=== PATIENT | female | born 1945 | race Caucasian/White ===

== ENCOUNTER 2017-06-24 12:23 | Emergency (ER) | payer OTHER ==
[2017-06-24 12:34] VITALS: TEMP 97.9
--- NOTE | 2017-06-24 13:01 | EDPHY ---
H & P Time Seen by Provider: 06/24/17 12:44 HPI/ROS: CHIEF COMPLAINT: Left hip injury HISTORY OF PRESENT ILLNESS: This 72-year-old woman has a history of having a right hip replaced in February of last year at [facility] for arthritis. Today she [place] when a dog came up behind her and rapid self around her legs causing her to fall landing on her left hip. No head injury or loss of consciousness and no neck or back pain. Hip injury is moderate and does not radiate but is worse with weight-bearing. No weakness or numbness in the foot. REVIEW OF SYSTEMS: Eye: no change in vision ENT: no sore throat Cardiac: no chest pain or syncope Pulmonary: no cough or SOB Abdomen: no vomiting, diarrhea, abdominal pain Musculoskeletal: No back or neck pain Skin: Left elbow abrasion and left hip contusion Neuro: no headache Constitutional: no fever : no urinary symptoms A comprehensive 10 point review of systems is otherwise negative aside from elements mentioned in the history of present illness. PAST MEDICAL HISTORY: Includes right hip replacement, hypercholesterolemia, coronary stenting in December. Arthritis. Social history: [facility] patient General Appearance: Alert and conversant, cooperative. Eyes: No scleral icterus. ENT, Mouth: Normal mucous membranes. Respiratory: Normal respiratory effort, breath sounds equal, lungs are clear to auscultation. Cardiovascular: Regular rate and rhythm. Gastrointestinal: Abdomen is soft and non tender. Neurological: Alert and oriented x3. Normally conversant. Face symmetric, normal movement and sensation in all extremities. Skin: Abrasion to the left elbow. 3 cm contusion to left hip around the area of the greater trochanter. Musculoskeletal: No midline spinal tenderness. Left iliac crest tenderness to pelvic compression but no instability. Left hip does not hurt on axial loading or rotation. Normal movement of the left knee and lower leg and ankle and foot. Normal range of motion of the left elbow and no other extremity tenderness. Psychiatric: Not agitated. Emergency Department course/MDM: Left hip x-ray. Do not think she has a left elbow fracture. Cervical spine cleared clinically. Tetanus up-to-date. 1330: Reviewed x-ray results with the patient, she can't really walk on it. Plan for CT to confirm no fracture and if negative crutches and outpatient follow-up with [facility]. 1425: Left hip CT negative for fracture. 1436: Results discussed with the patient, clinical follow-up, symptomatic treatment. Smoking Status: Never smoked Constitutional: Initial Vital Signs Temperature (C) 36.6 C 06/24/17 12:31 Heart Rate 95 06/24/17 12:31 Respiratory Rate 20 06/24/17 12:31 Blood Pressure 188/95 H 06/24/17 12:31 O2 Sat (%) 98 06/24/17 12:31 O2 Delivery Mode Room Air Allergies/Adverse Reactions: ibuprofen Allergy (Verified 06/24/17 12:31) Home Medications: Medication Instructions Recorded Brilinta 06/24/17 Lipitor 06/24/17 Medical Decision Making - Diagnostics Imaging Results: Imaging Impressions Hip X-Ray 06/24/17 12:43 Impression: Left hip negative for fracture. Extremity CT 06/24/17 13:29 Impression: Negative for fracture with degenerative changes noted. Results called and discussed with SHIREEN RASMUSSEN M.D. on 06/24/2017 at 14:25 Left hip x-ray interpreted by me shows no fracture or pelvic injury or dislocation. Imaging: I viewed and interpreted images myself Differential Diagnosis: Differential considered including but not limited to pelvic fracture, left hip contusion, femoral neck fracture, femur fracture. Departure - Departure Disposition: Home, Routine, Self-Care Clinical Impression: Contusion of left hip Qualifiers: Encounter type: initial encounter Qualified Code(s): S70.02XA - Contusion of left hip, initial encounter Condition: Good Instructions: Abrasion (ED), Hip Contusion (ED) Additional Instructions: Crutches, weight-bearing as tolerated. Please follow-up with your computer disc of imaging studies from [facility] at [facility] this week. Referrals: WOODY RODRÍGUEZ [Other] - As per Instructions [facility] ,. [Edm Groups for Call Sched] - As per Instructions
[2017-06-24 14:45] VITALS: BP 164/78; PULSE 82; RESP 18; O2SAT 96
== END 2017-06-24 15:20 | disposition home or self-care (01) ==
DX: S70.02XA Contusion of left hip, initial encounter (principal); W18.09XA Striking against other object with subsequent fall, initial encounter; Y99.8 Other external cause status; Y93.01 Activity, walking, marching and hiking